=== PATIENT | female | born 1975 | race Caucasian/White ===

== ENCOUNTER 2016-08-30 17:23 | Emergency (ER) | payer BC ==
[2016-08-30 18:13] VITALS: BP 149/80; PULSE 104; TEMP 99.2; BMI 37.1
--- NOTE | 2016-08-30 18:21 | EDPRACDOC ---
- General Information Chief Complaint: Foot Pain Stated Complaint: RT LOWER LEG PAIN Time Seen by Provider: 08/30/16 18:12 Information Source: Patient Mode of Arrival: Car Home Medications: Home Medications Alprazolam [Xanax] 0.25 mg PO BID 04/25/14 Insulin Pump/Infus. Set/Meter [Accu-Chek Combo System] 2 units MC .CONTINUOUS Venlafaxine HCl [Effexor Xr] 150 mg PO DAILY 04/25/14 Lansoprazole [Prevacid] 30 mg PO BID 08/30/14 Diltiazem HCl [Diltiazem 24Hr Cd] 180 mg PO DAILY #30 cap.sr.24h 01/11/15 Zolpidem Tartrate [Ambien] 10 mg PO HS 12/21/15 Multivitamin [One Daily Multivitamin] 1 each PO DAILY 12/27/15 Amoxicillin 500 mg PO TID #21 tablet 04/12/16 Hydrocodone/Acetaminophen [Lortab 5-325 mg Tablet] 1 each PO Q4H PRN #15 tablet 04/12/16 Lactobacillus Combo No.11 [Probiotic] 1 each PO DAILY #30 cap.sprink 04/12/16 Ibuprofen Tablet [Motrin] 800 mg PO TID PRN #30 tab 08/30/16 Allergies/Adverse Reactions: Allergies Allergy/AdvReac Type Severity Reaction Status Date / Time steroids AdvReac Unknown Unknown/See Uncoded 08/30/16 18:13 Comments - History of Present Illness Onset: 1300 HPI: PT STATES SHE WAS WALKING TODAY AND FELT A "POP" IN THE BACK OF HER RIGHT FOOT, COMPLAINS OF SHARP, STABBING PAIN SINCE, STATES UNABLE TO WALK ON THE FOOT DUE TO PAIN, NO OTHER INJURY, PAIN DOES NOT RADIATE. Foot Problem Location: Reports: Right, Posterior Mechanism: Reports: Other ("JUST WALKING") Circumstances: Reports: Other Able to Bear Weight: Limited Pain Severity: Reports: Severe Associated Signs & Symptoms: Denies: Swelling, Numbness, Weakness, Ankle Pain, Leg Pain, Knee Pain ED Past Medical History - History Reviewed Yes Nurses notes reviewed and agree except as marked - Patient Medical History Cardiac History: Reports: Hypercholesterolemia Respiratory History: Reports: Asthma (STRESS INDUCED ASTHMA) Psychological History: Reports: Depression Systemic History: Reports: Diabetes, Other (CAROLYN'S SYNDROME) Surgical History: Reports: Cholecystectomy, Hysterectomy, Tonsillectomy/ Adnoidectomy, Other (TM TUBES, SINUS SURGERY) - Family Medical History Reports: Hypertension (MOTHER , FATHER, GRANDPARENTS), Diabetes (SELF), Cancer ( FATHER-PROSTATE), Cardiac Disorders (MOTHER, FATHER, GRANDPARENTS). Denies: Stroke - Social Medical History Smoking Status: Never smoker EDM Review of Systems - Review of Systems Neurological: negative: Dizziness, Numbness, Weakness Musculoskeletal: Foot Integumentary: No Symptoms Reported - Physical Exam Constitutional: Alert (Awake), No apparent distress Oriented to: Time, Person, Place Last recorded Vital Signs: Last Vital Signs Temp 99.2 F 08/30/16 18:08 Pulse 104 08/30/16 18:08 Resp 20 08/30/16 18:08 BP 149/80 08/30/16 18:08 Pulse Ox 98 08/30/16 18:08 Oxygen Pulse Oxygen Saturation 98 O2 Device Room Air Oxygen Flow Rate Fraction of Inspired Oxygen ( FIO2) - HEENT Head: Normal ( normocephalic) - Integumentary Skin: Normal, Warm, Dry Lymphatics: Normal (no adenopathy) - Neurologic Memory Impaired: Normal Motor Function: Normal (Normal tone, Pulses 2+ No cyanosis or edema, FROM) Cranial Nerve: Normal (CN II-X11 intact sensation, strength 5/5) Cerebellar: Normal Mood Description: Normal Perception: Normal ED Foot Problem Phys Exam - Musculoskeletal Foot: Swelling, Limited ROM, Mild Tenderness. negative: Deformity, Ecchymosis Ankle: Normal Achilles Tendon: Tender, Other (JANG'S TEST -). negative: Defect Nail: Normal Nailbed: Normal Soft Tissue: Normal Digit: Normal Digit Strength: Normal Distal Function/Circulation: Normal, Capillary Refill. negative: Motor Deficit , Pulse Deficit, Sensory Deficit - Integumentary Skin: Normal - Differential Diagnosis Sprain - Diagnostic Imaging RIGHT FOOT Image interpreted by: Radiologist Diagnostic Imaging Comments: RIGHT FOOT COMPLETE - 3+ VIEW COMPARISON: 08/24/2009 FINDINGS: There is no evidence of fracture or dislocation. There is a bipartite medial hallux sesamoid. There is mild osteoarthritis of the first MTP joint. There is a plantar calcaneal spur. Soft tissues are unremarkable. IMPRESSION: 1. No acute osseous injury of the right foot. 2. Plantar calcaneal spur. Decision Time to Discharge: 18:53 - Departure Disposition: Home Condition: Stable Final Diagnosis: Achilles tendinitis, right leg Instructions: Achilles Tendinitis (ED) Education/Counseling Given To: Patient Education/Counseling Given Regarding: Diagnosis, Treatment, Prognosis, Follow Up Referrals: Matt Broussard PA [Primary Care Provider] - One Week Prescriptions: Ibuprofen Tablet [Motrin] 800 mg PO TID PRN #30 tab PRN Reason: Pain Additional Instructions: WEAR OLIVER WRAP NEEDED FOR PAIN, APPLY WARM COMPRESSES NEEDED FOR PAIN.
--- NOTE | 2016-08-30 18:51 | DIRPT ---
CLINICAL DATA: Heel pain, pain after walking. No known injury. EXAM: RIGHT FOOT COMPLETE - 3+ VIEW COMPARISON: 08/24/2009 FINDINGS: There is no evidence of fracture or dislocation. There is a bipartite medial hallux sesamoid. There is mild osteoarthritis of the first MTP joint. There is a plantar calcaneal spur. Soft tissues are unremarkable. IMPRESSION: 1. No acute osseous injury of the right foot. 2. Plantar calcaneal spur. Electronically Signed By: Ofe Christian On: 08/30/2016 18:48
== END 2016-08-30 19:08 | disposition home or self-care (01) ==
LOC: EDMC 17:23
DX: M76.61 Achilles tendinitis, right leg (principal)
CPT/HCPCS: 99282